=== PATIENT | male | born 1985 | race Caucasian/White ===

== ENCOUNTER 2020-12-28 23:34 | Emergency (ER) | payer SELFPAY ==
[~2020-12-28] VITALS: Ht 175.3 cm; Wt 80.0 kg
[2020-12-29 01:00] VITALS: BP 138/90
== END 2020-12-29 01:06 | DRG 605 ==
LOC: ED 23:34
DX: S00.81XA Abrasion of other part of head, initial encounter (principal); V48.5XXA Car driver injured in noncollision transport accident in traffic accident, initial encounter